=== PATIENT | female | born 1980 | race Caucasian/White ===

== ENCOUNTER → 2016-03-06 | Outpatient (CLI) | payer BC | LOC: LAB 09:29 | DX: Z01.419 Encounter for gynecological examination (general) (routine) without abnormal findings (principal); Z86.19 Personal history of other infectious and parasitic diseases; Z82.49 Family history of ischemic heart disease and other diseases of the circulatory system; R53.82 Chronic fatigue, unspecified; E66.01 Morbid (severe) obesity due to excess calories ==

== ENCOUNTER 2019-12-26 20:23 | Emergency (ER) | payer BC ==
[~2019-12-26] VITALS: Ht 175.3 cm; Wt 136.4 kg
[2019-12-26] MEDS ORDERED: SINGULAIR PO (20:55)
[2019-12-26] MEDS ORDERED: DIOVAN 80MG80 MG PO (20:55)
[2019-12-26] MEDS ORDERED: ADVAIR DISKUS1 DS2 IH (20:55)
[2019-12-26] MEDS ORDERED: ZYRTEC ALLERGY10 MG PO (20:55)
[2019-12-26 21:51] VITALS: BP 134/76
== END 2019-12-26 21:51 | disposition home or self-care (01) ==
LOC: ED 20:23
DX: T21.21XA Burn of second degree of chest wall, initial encounter (principal); T24.211A Burn of second degree of right thigh, initial encounter; T21.22XA Burn of second degree of abdominal wall, initial encounter; T31.0 Burns involving less than 10% of body surface; I10 Essential (primary) hypertension; Z23 Encounter for immunization; Z88.8 Allergy status to other drugs, medicaments and biological substances; Z88.1 Allergy status to other antibiotic agents; X11.8XXA Contact with other hot tap-water, initial encounter; Y92.009 Unspecified place in unspecified non-institutional (private) residence as the place of occurrence of the external cause
CPT/HCPCS: 90715